=== PATIENT | female | born 1970 | race Caucasian/White ===

== ENCOUNTER → 2020-08-27 14:55 | Outpatient (BNVA) | payer OTHER, SELFPAY | PROVIDERS: PCP Internal Medicine; Visit Provider Internal Medicine | DX: I35.0 Nonrheumatic aortic (valve) stenosis (principal); Q23.1 Congenital insufficiency of aortic valve | CPT/HCPCS: 93005; 99212 ==

== ENCOUNTER → 2020-10-02 14:47 | Outpatient (REF) | payer OTHER, SELFPAY ==
--- NOTE | 2020-10-02 15:00 | CA_ITS ---
Transthoracic Echocardiogram Patient (Last, First, Middle): Pooja Seay, Gender: Female Date of : 1970 Age: 50 Procedure Date: 10/02/2020 Procedure Type: Transthoracic Echocardiogram Location: OP Height: 167.64 cm Weight: 53.98 kg BSA: 1.60 m2 Heart Rate: bpm BP: 161 / 77 mmHg Weight Recorder: ERIC Referring MD: Alexis Carrillo MD Strategic Manager: Erasmo Puentes MD Symptoms: Q23.1 - Congenital insufficiency of aortic valve Study Quality: Technically Difficult ECG Rhythm: Sinus Conclusions: - 1. Normal LV systolic and diastolic function 2. Moderate aortic stenosis, aortic leaflets not well visualized, reported before as bicuspid aortic valve 3. Ascending aorta not well visualized 4. No gross pericardial effusion Findings Left Ventricle Normal left ventricular size, thickness, and systolic function. The visually estimated ejection fraction is between 60-65%. Diastolic function is normal for age. Right Ventricle Normal right ventricular cavity size and systolic function. Atria Both atria are normal in size. Interatrial shunt cannot be excluded. Aortic Valve The aortic valve was not well visualized. There is moderate aortic valve stenosis. The peak aortic gradient is 28 mmHg.The mean gradient is 16 mmHg. There is no aortic valve regurgitation. Mitral Valve Likely normal mitral valve structure and function. There is trace mitral valve regurgitation. There is no mitral valve stenosis. Pulmonic Valve The pulmonic valve was not well visualized. Tricuspid Valve The tricuspid valve was not well visualized. Great Vessels The aorta was not well visualized. The pulmonary artery was not well visualized. Venous The inferior vena cava is normal in size and collapses greater than 50% with inspiration. Pericardium/Pleural There is no evidence of pericardial effusion. Prior Study Comparison Changes noted compared to prior study dated: 08/08/2019. Aortic stenosis is of moderate severity, although gradients are 16 mm of mercury. Clinical correlation suggested. Measurements M-Mode Liner Measurements Normals - Women/Men AOV Cusps: 2.00 1.5-2.6 cm/m2 2D Linear Measurements IVSd: 0.80 0.6-0.9/0.6-1.0 cm LVIDd: 4.18 3.9-5.3/4.2-5.9 cm LVIDd Index: 2.61 2.4-3.2/2.2-3.1 cm/m2 LVIDs: 2.87 2.0-3.6 cm LVPWd: 0.82 0.7-1.1 cm Ao Root: 3.10 2.1-3.5 cm LA Diam: 2.20 2.7-3.8/3.0-4.0 cm LAIDs Index: 1.38 1.5-2.3 cm/m2 LV Mass: 127.17 67-162/88-224 g LV Mass Index: 79.48 43-95/49-115 g/m2 LVOT Diam: 2.10 3.0+(-)1.3 cm 2D Systolic Function EF 4C: 61.50 >55% EF 2C: 72.60 >55% EF BiP: 68.20 >55% Mitral Valve MV Pk E: 0.92 MV PK A: 0.62 MV Decel Time: 243.00 E/A: 1.50 E'Lateral: 11.40 E'Medial: 10.20 E/E' Med: 9.00 E/E' Lat: 8.10 PHT: 71.00 MVA PHT: 3.10 Decel [place]: 3.79 Aortic Valve AoV Pk Vidal: 2.63 AoV Mn Vidal: 1.90 AoV VTI: 0.56 AoV Pk Grad: 28.00 Aov Mn Grad: 16.00 JUSTICE Cont.VTI: 1.20 LVOT LVOT Pk Vidal: 0.90 LVOT Mn Vidal: 0.57 LVOT VTI: 0.19 LVOT Pk Grad: 3.00 LVOT Mn Grad: 2.00 LVOT Diam: 2.10 LVOT Area: 3.46 Diastolic Function MV Pk E: 0.92 MV Pk A: 0.62 E/A: 1.50 E'Medial: 10.20 E/E' Med: 9.00 E' Laterial: 11.40 E/E' Lat: 8.10 Tricuspid Valve RA Press: 3.00 Great Vessels Aorta Ao Root-2D: 3.10 2.0-3.7 cm Ao Asc: 2.70 2.1-3.4 cm Ao Arch: 2.90 Pulmonary Valve PV Pk Vidal: 0.84 Peak PV Grad: 3.00 Updated in Other Vendor System with Status of Final Erasmo Puentes MD electronically signed on 10/03/2020 1:28:49 PM with status of Final
== END ==
LOC: HO.CARD 14:47
PROVIDERS: PCP Internal Medicine; Visit Provider Internal Medicine
DX: Q23.1 Congenital insufficiency of aortic valve (principal); I77.810 Thoracic aortic ectasia
CPT/HCPCS: 93306

== ENCOUNTER → 2020-11-01 15:47 | Outpatient (BNVA) | payer OTHER, SELFPAY | PROVIDERS: PCP Internal Medicine; Visit Provider Internal Medicine Pulmonary Disease | DX: J44.9 Chronic obstructive pulmonary disease, unspecified (principal); Z79.899 Other long term (current) drug therapy | CPT/HCPCS: 99202 ==

== ENCOUNTER 2020-12-04 15:06 | Outpatient (REF) | payer OTHER, SELFPAY ==
--- NOTE | 2020-12-04 16:21 | PFT_ITS ---
Forced vital capacity normal. FEV1, FEF 25-75, and MVV are markedly decreased. Postbronchodilator therapy, there is a significant improvement in FEV1, PCN59-83, and MVV. Total lung capacity and residual volume normal. Diffusion capacity moderately decreased. CONCLUSION: Severe obstructive airway disorder. Partial reversibility after bronchodilator therapy. These findings are consistent with asthma/COPD overlap syndrome. Clinical correlation is recommended. MD SAMANTHA Ulloa/MODL / [id number]
== END 2020-12-04 15:07 | disposition home or self-care (01) ==
LOC: HO.RESP 15:06
PROVIDERS: PCP Internal Medicine; Visit Provider Internal Medicine Pulmonary Disease
DX: J44.9 Chronic obstructive pulmonary disease, unspecified (principal)
CPT/HCPCS: 94060; 94727; 94729; 99212

== ENCOUNTER 2021-05-07 13:42 | Outpatient (REF) | payer OTHER, SELFPAY ==
[2021-05-07 14:04] LABS: MANUAL DIFF FLAG NO
[2021-05-07 14:22] LABS: Basophils Absolute Auto 0.1 X10*3/uL (0.0-0.2); Basophils Percent Auto 1.1 % (0-2); Eosinophils Absolute Auto 0.2 X10*3/uL (0.0-0.4); Eosinophils Percent Auto 3.1 % (0-4); Hematocrit 45.8 % (37-47); Hemoglobin 15.3 g/dl (12.0-16.0); Imm Gran Abs Auto 0.02 X10*3/uL (0.00-0.03); Imm Gran Pct Auto 0.3 % (0.0-0.4); Lymphocytes Absolute Auto 2.6 X10*3/uL (1.2-4.9); Lymphocytes Percent Auto 34.6 % (20-40); Mean Corpuscular HGB Conc 33.4 g/dl (31.0-35.0); Mean Corpuscular Hemoglobin 30.5 pg (27.0-33.0); Mean Corpuscular Volume 91.4 fL (80-98); Mean Platelet Volume 9.9 fL (9.4-12.3); Monocytes Absolute Auto 0.7 X10*3/uL (0.1-1.2); Monocytes Percent Auto 9.9 % (2-11); Neutrophils Absolute Auto 3.8 X10*3/uL (2.0-8.3); Platelet Count 242 X10*3/uL (160-400); Red Blood Count 5.01 X10*6/uL (4.20-5.50); Red Cell Distribution Width 12.2 % (11.0-16.0); White Blood Count 7.5 X10*3/uL (4.8-10.8)
[2021-05-07 14:49] LABS: Alanine Aminotransferase 16 U/L (0-31); Albumin Level 4.2 g/dL (3.5-5.0); Alkaline Phosphatase 91 U/L (39-117); Anion Gap 10 (12-20); Aspartate Amino Transferase 17 U/L (5-31); Bilirubin Total 0.5 mg/dL (0.0-1.0); Blood Urea Nitrogen 10 mg/dL (9-16); Calcium 9.6 mg/dL (8.4-10.2); Carbon Dioxide 28 mmol/L (22-29); Chloride 105 mmol/L (96-108); Cholesterol 216 mg/dL; Estimated Glomerular Filt Rate > 60; Glucose Fasting 79 mg/dL (60-99); HDL Cholesterol 63 mg/dL; LDL Cholesterol Calculated 127 mg/dl; Potassium 4.5 mmol/L (3.3-5.1); Sodium 138 mmol/L (135-145); Total Protein 6.7 g/dL (6.5-8.0); Triglycerides 130 mg/dL
[2021-05-14 14:21] LABS: Vitamin D 25-OH, D2 <4 ng/mL; Vitamin D 25-OH, D3 40 ng/mL; Vitamin D 25-OH, Total 40 ng/mL (30-100)
== END 2021-05-07 13:43 | disposition home or self-care (01) ==
LOC: HO.LAB 13:42
PROVIDERS: PCP Internal Medicine; Visit Provider Internal Medicine
DX: Z01.818 Encounter for other preprocedural examination (principal); E78.5 Hyperlipidemia, unspecified; D64.9 Anemia, unspecified; E55.9 Vitamin D deficiency, unspecified; J44.9 Chronic obstructive pulmonary disease, unspecified
CPT/HCPCS: 36415; 80053; 80061; 82306; 85025

== ENCOUNTER → 2021-05-27 13:45 | Outpatient (BNVA) | payer OTHER, SELFPAY | PROVIDERS: PCP Internal Medicine; Visit Provider Internal Medicine Pulmonary Disease | DX: J44.9 Chronic obstructive pulmonary disease, unspecified (principal) | CPT/HCPCS: 99212 ==

== ENCOUNTER 2021-06-11 11:27 | Day surgery (SDC) | payer OTHER, SELFPAY ==
[2021-06-05 12:06] VITALS: BMI 17.7
--- NOTE | 2021-06-10 13:39 | HO.ANESPROP2 ---
Documented by User: Caitlin Cason NP 06/10/21 13:43 HPI - Anesthesia Eval Consult details Narrative: 50yo F for Colonoscopy PMFSH Active Problems Active Problems: All Active Problems (Updated 06/05/21 @ 12:04 by Bhavana Keys, RN) Asthma-COPD overlap syndrome (Acute) Colon cancer screening (Acute) History of cervical cancer (Acute) COPD (chronic obstructive pulmonary disease) (Acute) Non-rheumatic aortic stenosis (Acute) Bicuspid aortic valve (Acute) Pre-op evaluation (Acute) Allergies (Acute) Moderate asthma (Acute) Past Medical History Medical History (Updated 06/05/21 @ 12:04 by Bhavana Keys RN) Allergies Bicuspid aortic valve COPD (chronic obstructive pulmonary disease) Edentulous History of cervical cancer Moderate asthma Non-rheumatic aortic stenosis Pre-op evaluation Family History Family History Father Pancreatic cancer Mother Leaky heart valve Maternal Aunt Breast cancer Surgical History Surgical History History of bunionectomy History of loop electrical excision procedure (LEEP) (~06/15/20) History of pneumothorax History of tooth extraction Social History Social History Housing: Apartment Alcohol intake: never Patient Tobacco Use Status: Current someday Tobacco user Tobacco use type: Cigarette Cigarettes Per Day: 3 e-Cigarette/Vaping Use: Never Used Second Hand Smoke Exposure: No Use of substances other than those prescribed or required for medical reasons: Yes Substance Use Frequency: Daily Are you DNR?: No Advance Directives: No Advance Directives Information Provided: Yes (info mailed) Advance Directives on File: No service: No Current occupational status: disabled Meds Allergies Allergy/AdvReac Type Severity Reaction Status Date / Time ibuprofen [IBUPROFEN] Allergy Intermediate past gi Verified 05/27/21 13:50 bleed silver Allergy Intermediate Rash Verified 05/27/21 13:50 [From Tegaderm AG Mesh] aspirin [Aspirin] AdvReac Intermediate PAST GI Verified 06/05/21 12:05 BLEED Home Medications Medication Instructions Recorded Confirmed Last Taken Type multivitamin 1 tab PO DAILY 08/27/20 06/05/21 Unknown History umeclidinium 62.5 mcg-vilanterol 1 puff INHALATION DAILY 06/11/21 06/11/21 06/11/21 History 25 mcg/actuation powdr for inhalation (Anoro Ellipta) Exam Exam Date and Time: June 10, 2021 1339 Height,Weight and Vital Signs: Height 5 ft 6 in Weight 49.895 kg Pertinent Lab Results Pertinent Lab Results: Laboratory Tests 05/07/21 05/07/21 14:00 14:00 WBC 7.5 Hgb 15.3 Hct 45.8 Plt Count 242 Sodium 138 Potassium 4.5 Chloride 105 Carbon Dioxide 28 BUN 10 Creatinine 0.82 Narrative Narrative: EKG 08/2020 sinus rhythm at 67/Min; cannot exclude old septal infarct; otherwise unremarkable.? Could be from body habitus.? Similar to prior. ECHO 08/2020 Conclusions: -? 1. Normal LV systolic and diastolic function? 2. Moderate aortic stenosis, aortic leaflets not well visualized, reported before as bicuspid aortic valve ? 3. Ascending aorta not well visualized ? 4. No gross pericardial effusion ? ? ? Assessment and Plan Assessment Anesthesia Assessment: Chart Reviewed Documented by User: Anastasiya Peña MD 06/11/21 12:21 [facility] Past Medical History Medical History (Updated 06/05/21 @ 12:04 by Bhavana Keys, JACKIE) Allergies Bicuspid aortic valve COPD (chronic obstructive pulmonary disease) Edentulous History of cervical cancer Moderate asthma Non-rheumatic aortic stenosis Pre-op evaluation Family History Family History Father Pancreatic cancer Mother Leaky heart valve Maternal Aunt Breast cancer Surgical History Surgical History History of bunionectomy History of loop electrical excision procedure (LEEP) (~06/15/20) History of pneumothorax History of tooth extraction Social History Social History Housing: Apartment Alcohol intake: never Patient Tobacco Use Status: Current someday Tobacco user Tobacco use type: Cigarette Cigarettes Per Day: 3 e-Cigarette/Vaping Use: Never Used Second Hand Smoke Exposure: No Use of substances other than those prescribed or required for medical reasons: Yes Substance Use Frequency: Daily Are you DNR?: No Advance Directives: No Advance Directives Information Provided: Yes (info mailed) Advance Directives on File: No service: No Current occupational status: disabled Meds Allergies Allergy/AdvReac Type Severity Reaction Status Date / Time ibuprofen [IBUPROFEN] Allergy Intermediate past gi Verified 05/27/21 13:50 bleed silver Allergy Intermediate Rash Verified 05/27/21 13:50 [From Tegaderm AG Mesh] aspirin [Aspirin] AdvReac Intermediate PAST GI Verified 06/05/21 12:05 BLEED Home Medications Medication Instructions Recorded Confirmed Last Taken Type multivitamin 1 tab PO DAILY 08/27/20 06/05/21 Unknown History umeclidinium 62.5 mcg-vilanterol 1 puff INHALATION DAILY 06/11/21 06/11/21 06/11/21 History 25 mcg/actuation powdr for inhalation (Anoro Ellipta) Exam Airway Mallampati Class: II TM Dist: >3cm Neck ROM: Full
[2021-06-11 11:58] VITALS: BP 129/92; PULSE 58; RESP 16; TEMP 36.1; O2SAT 97
--- NOTE | 2021-06-11 12:27 | P.CONAN_ITS ---
[facility] Active Problems Active Problems: All Active Problems (Updated 06/05/21 @ 12:04 by Bhavana hansen, RN) Asthma-COPD overlap syndrome (Acute) Colon cancer screening (Acute) History of cervical cancer (Acute) COPD (chronic obstructive pulmonary disease) (Acute) Non-rheumatic aortic stenosis (Acute) Bicuspid aortic valve (Acute) Pre-op evaluation (Acute) Allergies (Acute) Moderate asthma (Acute) Past Medical History Medical History (Updated 06/05/21 @ 12:04 by Bhavana Keys RN) Allergies Bicuspid aortic valve COPD (chronic obstructive pulmonary disease) Edentulous History of cervical cancer Moderate asthma Non-rheumatic aortic stenosis Pre-op evaluation Family History Family History Father Pancreatic cancer Mother Leaky heart valve Maternal Aunt Breast cancer Surgical History Surgical History History of bunionectomy History of loop electrical excision procedure (LEEP) (~06/15/20) History of pneumothorax History of tooth extraction Social History Social History Housing: Apartment Alcohol intake: never Patient Tobacco Use Status: Current someday Tobacco user Tobacco use type: Cigarette Cigarettes Per Day: 3 e-Cigarette/Vaping Use: Never Used Second Hand Smoke Exposure: No Use of substances other than those prescribed or required for medical reasons: Yes Substance Use Frequency: Daily Are you DNR?: No Advance Directives: No Advance Directives Information Provided: Yes (info mailed) Advance Directives on File: No service: No Current occupational status: disabled Meds Allergies Allergy/AdvReac Type Severity Reaction Status Date / Time ibuprofen [IBUPROFEN] Allergy Intermediate past gi Verified 05/27/21 13:50 bleed silver Allergy Intermediate Rash Verified 05/27/21 13:50 [From Tegaderm AG Mesh] aspirin [Aspirin] AdvReac Intermediate PAST GI Verified 06/05/21 12:05 BLEED Active Medications: Current Medications Albuterol Sulfate (Albuterol Sulfate (0.083%) 2.5 Mg/3 Ml Vial.Neb) 2.5 mg INHALE ONCE PRN PRN Reason: Shortness of Breath/Wheezing Lactated Ringer's (Lr) 1,000 mls @ 100 mls/hr IVCONT .Q10H [facility] Home Medications Medication Instructions Recorded Confirmed Last Taken Type multivitamin 1 tab PO DAILY 08/27/20 06/05/21 Unknown History umeclidinium 62.5 mcg-vilanterol 1 puff INHALATION DAILY 06/11/21 06/11/21 06/11/21 History 25 mcg/actuation powdr for inhalation (Anoro Ellipta) Exam Exam Date and Time: June 11, 2021 1227 Height,Weight and Vital Signs: Height 5 ft 6 in Weight 49.895 kg Last Vital Signs Temp 97.0 F 06/11/21 11:58 Pulse 58 06/11/21 11:58 Resp 16 06/11/21 11:58 BP 129/92 H 06/11/21 11:58 Pulse Ox 97 06/11/21 11:58 Airway Mallampati Class: II TM Dist: >3cm Neck ROM: Full
[2021-06-11] MEDS: Lactated Ringers 1,000 ML 100 ML IVCONT (12:29)
--- NOTE | 2021-06-11 12:33 | MHC.SHP ---
Pre-Procedural Eval Section A Date of Service: 06/11/21 The patient is an INPATIENT: No The History & Physical has been completed within 30 days and I have reviewed it.: No Section B Chief Complaint: screening Details of Present Illness: Colon cancer screening Relevant Family History (Specify if Yes): Yes Relevant Social History: Tobacco Use Present Medications: see Short Stay Collaborative assessment Medical History: Significant History (Allergies Bicuspid aortic valve COPD (chronic obstructive pulmonary disease) History of cervical cancer Moderate asthma Non-rheumatic aortic stenosis Pre-op evaluation) History of Previous Operations: Relevant previous surgery/procedure and date(s) (History of bunionectomy History of loop electrical excision procedure (LEEP) (~06/15/20) History of pneumothorax History of tooth extraction) Allergies: Allergies Allergy/AdvReac Type Severity Reaction Status Date / Time ibuprofen [IBUPROFEN] Allergy Intermediate past gi Verified 05/27/21 13:50 bleed silver Allergy Intermediate Rash Verified 05/27/21 13:50 [From Tegaderm AG Mesh] aspirin [Aspirin] AdvReac Intermediate PAST GI Verified 06/05/21 12:05 BLEED Review of Systems Sugical H&P ROS: Negative: Constitution, Cardiovascular, Respiratory and Gastrointestinal Exam Surgical H&P Exam: Normal: Heart, Normal: Lungs, Normal: Extremities and Normal: Abdomen Plan Diagnosis/Plan: Unchanged I have reviewed the history and physical and performed a pertinent physical examination on my patient. No changes have occurred unless specified.
--- NOTE | 2021-06-11 13:22 | P.OP_ITS ---
Operative Note Operative Note Date of Service: 06/11/21 Narrative: Pre-op diagnosis:?Colon cancer screening Post-op diagnosis:?other (Colon polyp, diverticulosis, hemorrhoid) Procedure:? COLONOSCOPY TILL CECUM WITH SNARE POLYPECTOMY Consent: Indications for the procedure and potential complications of bleeding, perforation, reaction to medications and missed diagnosis were discussed with the patient and informed consent was obtained. Instrument: Olympus PCF H 190 L variable stiffness pediatric colonoscope Monitoring: Vital signs and clinical assessment, intermittent blood pressure monitoring, continuous EKG monitoring, Pulse oximetry and Carbon Dioxide monitoring were done throughout the procedure. Colon withdrawl time was 27 minutes. Procedure: The patient was placed in the left lateral decubitis position and pre-procedure medications were administered. After a digital rectal examination of the ano-rectum, the video colonoscope was inserted into the rectum and advanced through the colon to the cecum. The colonoscope was slowly withdrawn in a retrograde panoramic fashion and the colon mucosa was carefully examined including a retroflexed view of the rectum. Findings and interventions are described below. Procedure Difficulty: Without difficulty Findings: Terminal Ileum: Not evaluated Cecum:? Normal Ascending Colon:? Normal Transverse Colon:? Normal Descending Colon:? Normal Sigmoid Colon:? A 10 mm sessile polyp removed with a hot snare. Moderate diverticulosis Rectum:? Normal Ano-rectum:? Moderate internal hemorrhoids Colon preparation:? There was a thin film of yellow fluid covering the mucosa. Good? after copious irrigation Impression and Post Procedure Diagnosis: Colonoscopy Findings: One medium sized polyps removed Moderate diverticulosis seen in the sigmoid colon Moderate hemorrhoids on retroflexed exam. Plan: Await pathology results Patient has an appointment on 06/25/21 in the GI Clinic with? Cori Chen NP. Repeat Colonoscopy interval based on path results - in 3 years if polyps are adenomatous and 10 years if polyps are hyperplastic. Above findings were reviewed with the patient and colon polyps and diverticulosis handouts were given in the discharge area Surgeon:?Napoleon Alanis MD Anesthesia:?MAC (Carolyn Almeida CRNA) Was an Retail Reset Merchandiser used for this Procedure?:?No Retail Reset Merchandiser:?Jane Harris Estimated blood loss (mL):?0 Pathology:?other (A. sigmoid polyp) Condition:?stable Disposition:?PACU
[2021-06-11 14:17] VITALS: BP 153/98; PULSE 67; RESP 16; TEMP 36.1; O2SAT 100
[2021-06-11 14:32] VITALS: BP 142/102; PULSE 72; RESP 18; TEMP 36.1; O2SAT 100
== END 2021-06-11 15:59 | disposition home or self-care (01) ==
PROVIDERS: PCP Internal Medicine; Visit Provider Internal Medicine Gastroenterology
PROC: 0DJD8ZZ Inspection of Lower Intestinal Tract, Via Natural or Artificial Opening Endoscopic (ICD-10-PCS; CPT 45378; principal; 2021-06-11 12:40)
DX: Z12.11 Encounter for screening for malignant neoplasm of colon (principal); D12.5 Benign neoplasm of sigmoid colon; K57.30 Diverticulosis of large intestine without perforation or abscess without bleeding; K64.8 Other hemorrhoids; J44.9 Chronic obstructive pulmonary disease, unspecified; Q23.1 Congenital insufficiency of aortic valve; Z79.51 Long term (current) use of inhaled steroids; Z88.8 Allergy status to other drugs, medicaments and biological substances; F17.210 Nicotine dependence, cigarettes, uncomplicated
CPT/HCPCS: 45385; 88305

== ENCOUNTER → 2022-02-18 13:33 | Outpatient (BNVA) | payer OTHER, SELFPAY | PROVIDERS: PCP Internal Medicine; Visit Provider Internal Medicine Pulmonary Disease | DX: J44.9 Chronic obstructive pulmonary disease, unspecified (principal); Z91.09 Other allergy status, other than to drugs and biological substances; F12.90 Cannabis use, unspecified, uncomplicated | CPT/HCPCS: 99212 ==

== ENCOUNTER → 2022-03-26 14:58 | Outpatient (BNVA) | payer OTHER, SELFPAY | PROVIDERS: PCP Internal Medicine; Referring Provider Internal Medicine; Visit Provider Internal Medicine | DX: I35.0 Nonrheumatic aortic (valve) stenosis (principal); Q23.1 Congenital insufficiency of aortic valve | CPT/HCPCS: 93005; 99212 ==

== ENCOUNTER → 2022-04-11 15:04 | Outpatient (REF) | payer OTHER, SELFPAY ==
--- NOTE | 2022-04-11 15:25 | CA_ITS ---
Transthoracic Echocardiogram Amended Patient (Last, First, Middle): Pooja Seay E Gender: Female Date of : 1970 Age: 51 Procedure Date: 04/11/2022 Procedure Type: Transthoracic Echocardiogram Location: OP Height: 167.64 cm Weight: 57.61 kg BSA: 1.65 m2 Heart Rate: 76 bpm BP: 124 / 68 mmHg Online Advertising Manager: SB Referring MD: Alexis Carrillo MD Manager Embalmer Funeral Director: Erasmo Puentes MD Symptoms: Q23.1 - Congenital insufficiency of aortic valve Study Quality: Adequate ECG Rhythm: Sinus Conclusions: - 1. Normal LV systolic function with grade 1 diastolic dysfunction 2. Possible bicuspid aortic valve with moderate aortic stenosis 3. Normal RV systolic pressure 4. Mildly dilated ascending aorta at 4 cm 5. No pericardial effusion Findings Left Ventricle Normal left ventricular size, thickness, and systolic function. The visually estimated ejection fraction is between 60-65%. Spectral Doppler is indicative of an impaired relaxation filling pattern. E/E prime ratio is <8, consistent with normal filling pressures. Evidence suggests grade I (mild) diastolic dysfunction. Peak GLS is -18.7%, within normal limits. Right Ventricle Normal right ventricular cavity size and systolic function. Atria Both atria are normal in size. There is lipomatous hypertrophy of the interatrial septum. There is no evidence of interatrial shunt. Aortic Valve There is a bicuspid aortic valve. There is mild calcification of the aortic valve. There is mild thickening of the aortic valve. There is moderate aortic valve stenosis. The mean gradient is 16 mmHg. The aortic valve area is 1.27 cm2. There is no aortic valve regurgitation. Mitral Valve Likely normal mitral valve structure and function. There is trace mitral valve regurgitation. There is no mitral valve stenosis. Pulmonic Valve The pulmonic valve was not well visualized. Tricuspid Valve Likely normal tricuspid valve structure and function. There is trace tricuspid valve regurgitation. The right ventricular systolic pressure is normal. Normal right atrial pressure. There is no evidence of pulmonary hypertension. Great Vessels The pulmonary artery was not well visualized. There is mild dilatation of the ascending aorta measuring 4.00 cm. Venous The inferior vena cava is normal in size and collapses greater than 50% with inspiration. Pericardium/Pleural There is no evidence of pericardial effusion. Prior Study Comparison Changes noted compared to prior study dated: 10/02/2020. ascending aorta is mildly dilated at 4 cm Measurements 2D Linear Measurements IVSd: 0.87 0.6-0.9/0.6-1.0 cm LVIDd: 4.58 3.9-5.3/4.2-5.9 cm LVIDd Index: 2.78 2.4-3.2/2.2-3.1 cm/m2 LVIDs: 2.82 2.0-3.6 cm LVPWd: 0.80 0.7-1.1 cm LA Diam: 2.80 2.7-3.8/3.0-4.0 cm LAIDs Index: 1.70 1.5-2.3 cm/m2 LV Mass: 153.14 67-162/88-224 g LV Mass Index: 92.81 43-95/49-115 g/m2 LVOT Diam: 2.00 3.0+(-)1.3 cm 2D Volumes LA Vol: 16.40 2D Systolic Function EF 4C: 67.90 >55% EF 2C: 67.50 >55% EF BiP: 67.40 >55% Mitral Valve MV Pk E: 0.80 MV PK A: 0.81 MV Decel Time: 203.00 E/A: 1.00 E'Lateral: 9.68 E'Medial: 5.98 E/E' Med: 13.30 E/E' Lat: 8.20 PHT: 59.00 MVA PHT: 3.73 Decel [place]: 3.92 Aortic Valve AoV Pk Vidal: 2.65 AoV Mn Vidal: 1.89 AoV VTI: 0.55 AoV Pk Grad: 28.00 Aov Mn Grad: 16.00 JUSTICE Cont.VTI: 1.27 LVOT LVOT Pk Vidal: 1.08 LVOT Mn Vidal: 0.77 LVOT VTI: 0.22 LVOT Pk Grad: 5.00 LVOT Mn Grad: 3.00 LVOT Diam: 2.00 LVOT Area: 3.14 Diastolic Function MV Pk E: 0.80 MV Pk A: 0.81 E/A: 1.00 E'Medial: 5.98 E/E' Med: 13.30 E' Laterial: 9.68 E/E' Lat: 8.20 Right Ventricle TAPSE (mm): 20.70 TVS' Vidal: 10.80 Tricuspid Valve TR Pk Vidal: 1.95 TR Pk Grad: 15.00 RA Press: 3.00 RVSP: 18.00 Great Vessels Aorta Sinus of Valsalva: 3.30 2.0-3.5 cm Ao Asc: 4.00 2.1-3.4 cm Ao Arch: 2.90 Ao Desc: 2.20 Pulmonary Valve PV Pk Vidal: 0.87 Peak PV Grad: 3.00 Updated in Other Vendor System with Status of Final Erasmo Puentes MD electronically signed on 04/12/2022 11:06:06 AM with status of Final
== END ==
LOC: HO.CARD 15:04
PROVIDERS: PCP Internal Medicine; Visit Provider Nurse Practitioner Family
DX: Q23.1 Congenital insufficiency of aortic valve (principal)
CPT/HCPCS: 93306; 93356

== ENCOUNTER 2022-05-14 15:38 | Outpatient (REF) | payer OTHER, SELFPAY ==
[2022-05-15 02:52] LABS: CT PCR NOT DETECTED (Not Detect.); NG PCR NOT DETECTED (Not Detect.)
[2022-05-15 13:27] LABS: BV Int Neg Control Negative (Negative); BV Int Pos Control Positive (Positive)
[2022-05-20 20:42] LABS: HPV mRNA E6/E7 rflx Not Detected (Not Detected)
== END 2022-05-14 15:39 | disposition home or self-care (01) ==
LOC: HO.LNP 15:38
PROVIDERS: Visit Provider Advanced Practice Midwife
DX: Z01.419 Encounter for gynecological examination (general) (routine) without abnormal findings (principal); Z11.51 Encounter for screening for human papillomavirus (HPV)
CPT/HCPCS: 87480; 87491; 87510; 87591; 87624; 87660; 88142

== ENCOUNTER → 2022-07-16 13:18 | Outpatient (BNVA) | payer OTHER, SELFPAY | PROVIDERS: PCP Internal Medicine; Referring Provider Internal Medicine; Visit Provider Nurse Practitioner Family | DX: I77.810 Thoracic aortic ectasia (principal); Q23.1 Congenital insufficiency of aortic valve | CPT/HCPCS: 99212 ==

== ENCOUNTER 2022-07-24 08:13 | Outpatient (REF) | payer OTHER, SELFPAY ==
[2022-07-24 12:57] LABS: Alanine Aminotransferase 15 U/L (0-31); Albumin Level 4.4 g/dL (3.5-5.0); Alkaline Phosphatase 87 U/L (39-117); Anion Gap 12 (12-20); Aspartate Amino Transferase 18 U/L (5-31); Bilirubin Total 0.4 mg/dL (0.0-1.0); Blood Urea Nitrogen 13 mg/dL (9-16); Calcium 9.5 mg/dL (8.4-10.2); Carbon Dioxide 26 mmol/L (22-29); Chloride 104 mmol/L (96-108); Cholesterol 234 mg/dL; Estimated Glomerular Filt Rate > 60; Glucose Fasting 97 mg/dL (60-99); HDL Cholesterol 59 mg/dL; LDL Cholesterol Calculated 151 mg/dl; Potassium 4.4 mmol/L (3.3-5.1); Sodium 138 mmol/L (135-145); Triglycerides 123 mg/dL
== END 2022-07-24 08:14 | disposition home or self-care (01) ==
LOC: HO.10HDL 08:13
PROVIDERS: Visit Provider Internal Medicine
DX: Z00.00 Encounter for general adult medical examination without abnormal findings (principal)
CPT/HCPCS: 36415; 80053; 80061

== ENCOUNTER 2025-01-12 15:02 | Outpatient (AMB) | payer OTHER, SELFPAY ==
[2025-01-12 15:19] VITALS: BP 126/80; BMI 20.2
--- NOTE | 2025-01-12 15:19 | A.OFFPC_ITS ---
Vital Signs 01/12/25 15:19 Height 5 ft 6 in Weight 125 lb BMI 20.2 BP 126/80 Blood Pressure Location Lt brachial Position Sitting Intake Visit Reasons: annual exam Intake Note: Patient here for an annual physical exam Director Business Management Required: No Accompanied by: Brother Allergies ibuprofen [IBUPROFEN] Allergy (Intermediate, Verified 01/12/25 15:26) past gi bleed silver [From Tegaderm AG Mesh] Allergy (Intermediate, Verified 01/12/25 15:26) Rash aspirin [Aspirin] Adverse Reaction (Intermediate, Verified 01/12/25 15:26) PAST GI BLEED Medication List - Last Reconciled 01/12/25 by Suzan Spivey MD aspirin 81 mg PO DAILY umeclidinium-vilanterol 62.5-25 mcg/actuation (Anoro Ellipta) 1 ea inhalation DAILY Tobacco use date assessed: 01/12/25 Dental Screening Dental Screen Date: 01/12/25 Did you have a dental visit in the last 12 months?: No Did you have a dental problem in the last 6 months where you did not have access to dental care?: No Was dental information given to patient?: Patient declined HPI HPI Comments History of Present Illness Details The patient is a 54-year-old female presenting for a routine physical examination and allergy management. 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 She has a history of a tubular adenoma found in 2020, which requires follow-up colonoscopy surveillance that has been delayed due to relocation and personal circumstances. Her previous medical history includes a pneumothorax in 2001 and bilateral bunionectomies in 1987. She has experienced ibuprofen and aspirin-induced gastrointestinal bleeding and a silver-induced rash. She does not consume alcohol but smokes occasionally. Family medical history reveals her father's pancreatic cancer and her mother's heart valve issues, with a maternal aunt also having a history of breast cancer. The patient is concerned about allergic rhinitis exacerbated by high pollen exposure, seeking effective management solutions for this condition. - Routine physical examination - Colonoscopy follow-up planned for tubu lar adenoma surveillance - Allergy management plan for allergic r hinitis - BMI and general wellness assessment [facility] Medical History (Updated 01/12/25 @ 15:36 by Suzan Spivey MD) Ascending aorta dilatation Edentulous History of cervical cancer COPD (chronic obstructive pulmonary disease) Non-rheumatic aortic stenosis Bicuspid aortic valve Pre-op evaluation Allergies Moderate asthma Surgical History History of loop electrical excision procedure (LEEP) (~06/15/20) History of tooth extraction History of pneumothorax History of bunionectomy Family History Father Pancreatic cancer Mother Leaky heart valve Maternal Aunt Breast cancer Social History Housing: Apartment Alcohol intake: never Patient Tobacco Use Status: Current someday Tobacco user Tobacco use type: Cigarette Cigarettes Per Day: 3 e-Cigarette/Vaping Use: Never Used Second Hand Smoke Exposure: No service: No Current occupational status: disabled Cognitive needs: No Hearing needs: No Vision needs: No Female Reproductive History Menstrual Age of Menarche: 11 Questionnaire PHQ-9 Over the last 2 weeks, how often have you been bothered by any of the following problems? 1. Little interest or pleasure in doing things: not at all 2. Feeling down, depressed, or hopeless: not at all 3. Trouble falling or staying asleep, or sleeping too much: not at all 4. Feeling tired or having little energy: not at all 5. Poor appetite or overeating: not at all 6. Feeling bad about yourself - or that you are a failure or have let yourself or your family down: not at all 7. Trouble concentrating on things, such as reading the newspaper or watching television: not at all 8. Moving or speaking so slowly that other people could have noticed. Or the opposite - being so fidgety or restless that you have been moving around a lot more than usual: not at all 9. Thoughts that you would be better off or of hurting yourself in some way: not at all Total score: 0 Depression Screening Interpretation: Negative Depression Screening Done: Yes Source: Developed by Drs. Amauri Dozier, Debra Heredia, Felipe Diop and colleagues, with an educational monae from [employer]. Thrive Questionnaire Date Thrive assessed: 01/12/25 I am a: Patient What is your living situation today?: I have a steady place to live Within the past 12 months, did the food you bought not last and you didn't have the money to get more?: Never true Within the past 12 months, did you worry whether your food would run out before you got money to buy more?: Never true Do you have trouble paying for medicines?: No Do you have trouble getting transportation to medical appointments?: No Do you have trouble paying your heating and electricity bill?: No Do you have trouble taking care of your child, family member or friend?: No Do you have trouble with day-to-day activities such as bathing, preparing meals, shopping, managing finances, etc.?: No Are you currently unemployed and looking for a job?: No Are you interested in more education?: No Please select the resources that you would like help with: None Currently or been in a relationship where the following occur: No concerns reported THRIVE Score: 0 AUDIT C Alcohol Use Questionnaire (AUDIT-C) 1. How often do you have a drink containing alcohol?: Never Total Score: 0 Score Reviewed/Action Taken: No DOMENIC-7 AMB Questionnaire DOMENIC-7 Date DOMENIC - 7 assessed: 01/12/25 Feeling nervous, anxious, or on edge: 2 = More than half the days Not being able to stop or control worryin = Not at all Worrying too much about different things: 0 = Not at all Trouble relaxin = More than half the days Being so restless that it is hard to sit still: 3 = Nearly every day Becoming easily annoyed or irritable: 0 = Not at all Feeling afraid as if something awful might happen: 2 = More than half the days Total DOMENIC-7 score (0-4 normal; 5-9 mild; 10-14 moderate; 15-21 severe): 9 Source: Developed by Drs. Amauri Dozier, Debra Heredia, Felipe Diop and colleagues, with an educational monae from [employer]. DOMENIC-7 Assessment Billing DOMENIC-7 Assessment Tool: DOMENIC-7 Assessment 61557 Review of Systems Const All systems reviewed & are unremarkable except as noted in HPI and below Card Denies chest pain at rest, Denies chest pain with activity, Denies edema, Denies irregular heart rhythm, Denies claudication, Denies dyspnea, Denies dyspnea on exertion, Denies orthopnea, Denies paroxysmal nocturnal dyspnea and Denies slow heart rate Resp Denies cough, Denies dyspnea and Denies dyspnea on exertion GI Denies abdominal pain, Denies change in bowel habits, Denies excessive flatus, Denies nausea and Denies vomiting Denies urinary incontinence, Denies urinary hesitancy and Denies urinary urgency Musc Denies abnormal gait, Denies atrophy, Denies deformity and Denies limited range of motion Skin/Breast Denies bleeding lesions, Denies changing lesions and Denies rash Neuro Denies abnormal gait, Denies behavioral changes and Denies lack of coordination Psych Denies behavioral changes Physical exam (Primary Care) Vital Signs: Last Vital Signs BP 126/80 01/12/25 15:19 BMI result Body Mass Index 20.2 Tobacco/Smoking Status: Tobacco use Status Tobacco use date assessed 01/12/25 01/12/25 15:26 Patient Tobacco Use Status Current someday Tobacco 01/12/25 15:26 Tobacco use type Cigarette 01/12/25 15:26 e-Cigarette/Vaping Use Never Used 01/12/25 15:26 Depression Screening Interpretation: Negative Thrive Assessment: Date of Thrive Assessment Date Thrive assessed 01/12/25 01/12/25 15:26 Currently or been in a relationship where the following occur: No concerns reported [facility] Head: Yes normal to inspection, Yes normocephalic and Yes atraumatic Ears: external ears normal Eyes General: appearance normal, both eyes and all related structures Eyelids: Yes eyelids normal Conjunctivae: conjunctivae normal Neck Neck: Yes normal visual inspection and Yes supple Resp Effort & Inspection: normal respiratory effort Auscultation: clear to auscultation bilaterally Cardio Jugular venous distension: no JVD Rate: regular rate Rhythm: regular rhythm Heart sounds: S1 normal heart sound present and S2 normal heart sound present GI Inspection: Yes normal to inspection Palpation (GI): Soft to palpation and nontender Auscultation: normal bowel sounds Skin General skin exam: no rashes or lesions noted Neuro General: no focal motor deficits Extrem General: Yes full ROM Psych Appearance: grossly normal Coding Level of Care Code Est Pt Level 3 (81626) Est Pt Prev Care 40-64y(47849) Diagnoses Physical exam Z00.00 Seasonal allergic rhinitis due to pollen J30.1 Asthma-COPD overlap syndrome J44.9 Additional Codes DOMENIC-7 Assessment Billing - DOMENIC-7 Assessment Tool: DOMENIC-7 Assessment 44747 ([id number]) Time Spent (min) 31 Assessment & Plan Assessment & Plan (1) Physical exam: Code(s): Z00.00 - Encounter for general adult medical examination without abnormal findings Category: Medical (2) Seasonal allergic rhinitis due to pollen: Code(s): J30.1 - Allergic rhinitis due to pollen Category: Medical (3) Asthma-COPD overlap syndrome: Code(s): J44.9 - Chronic obstructive pulmonary disease, unspecified Category: Medical Plan We will schedule a follow-up colonoscopy due to her history of a tubular adenoma. Allergy medications will be prescribed to alleviate symptoms exacerbated by local high pollen levels. We discussed the importance of smoking cessation and strategies to facilitate this. Given her history of NSAID-induced gastrointestinal bleeding, we advised avoiding ibuprofen and discussed alternative options. Health maintenance, including vaccinations and screenings, will continue to be a priority, ensuring compliance with routine preventive care guidelines. Interventions to improve her housing situation and reduce stressors were also discussed. Patient was informed and verbally consented to the use of an ambient scribe for clinic note documentation during this visit. During this consultation, we discussed the importance of follow-up colonoscopy for surveillance of her previous tubular adenoma, adhering to established guidelines. I reiterated the role of allergy management with appropriate medications to address her exacerbated symptoms from environmental pollen. We conversed on minimizing NSAID usage due to the risk of gastrointestinal bleeding, recommending alternative pain management strategies. Smoking cessation was highlighted, along with its health benefits. Provided guidance on prioritizing housing stability to enhance her overall health and reduce smoking triggers. She was aware of the need for regular health maintenance, including vaccinations and necessary screenings, and agreed to the proposed plan. Medications: New cetirizine (All Day Allergy (cetirizine)) 10 mg PO DAILY 90 days PRN 90 tabs 1RF allergy symptoms J30.1 - Allergic rhinitis due to pollen Patient Instructions: - Schedule a follow-up colonoscopy for surveillance within the next year. - Take prescribed allergy medications regularly to control symptoms. - Avoid NSAIDs like ibuprofen and seek alternatives for pain if necessary. - Attempt smoking cessation using provided resources and support. - Follow up with routine vaccinations and screenings as advised. - Address current housing situation to reduce stress and smoking triggers.
== END 2025-01-12 15:33 | disposition home or self-care (01) ==
PROVIDERS: PCP Internal Medicine; Visit Provider Internal Medicine
DX: Z00.00 Encounter for general adult medical examination without abnormal findings (principal); J30.1 Allergic rhinitis due to pollen; J44.9 Chronic obstructive pulmonary disease, unspecified

== ENCOUNTER → 2025-01-12 15:02 | Outpatient (BNVA) | payer OTHER, SELFPAY | PROVIDERS: PCP Internal Medicine; Visit Provider Internal Medicine | DX: Z00.00 Encounter for general adult medical examination without abnormal findings (principal); J44.89 Other specified chronic obstructive pulmonary disease; J30.1 Allergic rhinitis due to pollen | CPT/HCPCS: 96127; 99212; 99396 ==

== ENCOUNTER 2025-05-03 14:29 | Outpatient (AMB) | payer OTHER, SELFPAY ==
--- NOTE | 2025-05-03 14:39 | MHC.OFFVIS ---
Vital Signs 05/03/25 14:56 Height 5 ft 6 in Weight 124 lb 12.506 oz BMI 20.1 BP 122/82 Blood Pressure Location Lt brachial Position Sitting Pulse 65 Intake Visit Reasons: abdominal pain Intake Note: New patient in office today for abdominal pain. CC: Patient c/o abdominal pain for about a pain, fevers, chills, vomiting, pain worse after eating something solid. She has been on liquid diet. She reports some bloods spots here and there . Day Habilitation Supervisor Required: No Accompanied by: Friend Allergies ibuprofen (IBUPROFEN) Allergy (Intermediate, Verified 05/03/25 15:02) past gi bleed silver (From Tegaderm AG Mesh) Allergy (Intermediate, Verified 05/03/25 15:02) Rash aspirin (Aspirin) Adverse Reaction (Intermediate, Verified 05/03/25 15:02) PAST GI BLEED HPI HPI abdominal pain: Details: 50-year-old female here for preprocedural meeting to discuss a screening colonoscopy. APPARENTLY, they tried to order open access for her but she did not meet the criteria. She is [place] Suzan Spive[place] [facility] [place] PMX Asthma-COPD overlap syndrome (Acute) Bicuspid aortic valve (Acute) History of cervical cancer (Acute) Non-rheumatic aortic stenosis (Acute) * SURGICAL HISTORY History of bunionectomy 1988 bilateral History of loop electrical excision procedure (LEEP) @ [facility]; Dr. Barr ~06/15/20 History of pneumothorax 2001 History of tooth extraction * ALLERGIES ibuprofen - past gi bleed silver - Rash aspirin - PAST GI BLEED * [address] [facility]: none since 2021 2020 colonoscopy-[facility] Findings: Terminal Ileum: Not evaluated Cecum:? Normal Ascending Colon:? Normal Transverse Colon:? Normal Descending Colon:? Normal Sigmoid Colon:? A 10 mm sessile polyp removed with a hot snare. Moderate diverticulosis Rectum:? Normal Ano-rectum:? Moderate internal hemorrhoids Colon preparation:? There was a thin film of yellow fluid covering the mucosa. Good? after copious irrigation Impression and Post Procedure Diagnosis: Colonoscopy Findings: One medium sized polyps removed Moderate diverticulosis seen in the sigmoid colon Moderate hemorrhoids on retroflexed exam. Plan: Await pathology results Patient has an appointment on 06/25/21 in the GI Clinic with? Cori Chen NP. Repeat Colonoscopy interval based on path results - in 3 years if polyps are adenomatous and 10 years if polyps are hyperplastic. BIOPSY Received: 06/12/21 Diagnosis Colon, sigmoid, polypectomy: Fragments of tubular adenoma; no high-grade dysplasia or carcinoma seen TODAY'S VISIT APPARENTLY SHE HAS requesting an urgent visit for evaluation of abdominal pain. She is also overdue for her rescreening colonoscopy. [facility] Medical History (Updated 05/03/25 @ 15:39 by SUSAN Thornton) Physical exam Moderate asthma Encounter for gynecological examination with Papanicolaou smear of cervix Colon cancer screening Allergies Ascending aorta dilatation Edentulous History of cervical cancer COPD (chronic obstructive pulmonary disease) Non-rheumatic aortic stenosis Bicuspid aortic valve Pre-op evaluation Surgical History (Updated 05/03/25 @ 15:01 by Madelaine Weston [facility]) H/O colonoscopy History of loop electrical excision procedure (LEEP) (~06/15/20) History of tooth extraction History of pneumothorax History of bunionectomy Family History Father Pancreatic cancer Mother Leaky heart valve Maternal Aunt Breast cancer Social History Housing: Apartment Alcohol intake: never Patient Tobacco Use Status: Current someday Tobacco user Tobacco use type: Cigarette Cigarettes Per Day: 3 e-Cigarette/Vaping Use: Never Used Second Hand Smoke Exposure: No service: No Current occupational status: disabled Cognitive needs: No Hearing needs: No Vision needs: No Female Reproductive History Menstrual Age of Menarche: 11 Review of Systems Const Denies fatigue, Reports fever(s), Denies night sweats, Reports poor appetite and Denies weight loss ENT Reports Normal hearing present, Denies dental pain, Denies dysphagia, Denies hearing loss, Denies mouth pain, Denies odynophagia, Denies throat swelling, Denies tongue swelling and Reports other (Dentition adequate) Card Reports no additional complaints Resp Reports no additional complaints GI Details: Reports abdominal pain, Denies melena, Denies bloating, Denies hematochezia, Reports constipation, Denies GI cramping, Denies dysphagia, Denies excessive flatus, Denies early satiety, Denies heartburn, Denies diarrhea, Denies nausea, Denies odynophagia, Reports vomiting and Denies hematemesis Skin/Breast Denies pruritus, Denies lesions, Denies rash and Denies jaundice Neuro Reports Normal hearing present and Denies Abnormal speech present Psych Reports anxiety Endo Denies fatigue Aller/Immun Denies throat swelling and Denies tongue swelling Physical Exam Const General: cooperative, well developed, acute distress moderate, anxious and well groomed Nutritional Appearance: well nourished and thin Orientation/consciousness: oriented to person, oriented to place and oriented to time Limitations: No language barrier HEENT Head: Yes normocephalic and Yes atraumatic Eyes General: appearance normal, both eyes and all related structures Pupils: Equal, round and reactive pupils present Neck Neck: Yes normal visual inspection and Yes no lymphadenopathy Thyroid: Thyroid normal Resp Effort & Inspection: normal respiratory effort and able to speak in complete sentences Auscultation: clear to auscultation bilaterally and diminished lung sounds bilateral in the lower lung gaspar Cardio Rate: regular rate Rhythm: abnormal rhythm regularly irregular Heart sounds: Murmur heart sound present (Aortic systolic no radiation to the carotid question mild mitral systolic m) Peripheral pulses: radial pulses present and posterior tibial pulses present GI Inspection: No distended, No Abdominal panniculus present, No scar and No striae Palpation (GI): Soft to palpation, Tenderness to palpation present (GI) in the LLQ, in the LUQ and in the RUQ, no guarding, not rigid and No hepatosplenomegaly present Percussion: Yes normal to percussion Auscultation: Hyperactive bowel sounds present Rectal Exam - Female: deferred Skin General skin exam: no rashes or lesions noted, turgor normal, skin not dry, no jaundice, No spider nevi and no striae Rashes: no rashes Nails: normal Neuro General: oriented to person, oriented to place and oriented to time Cranial nerves: Yes Equal, round and reactive pupils present and Yes Normal hearing present Speech: No Abnormal speech present Extrem General: Yes normal to inspection, No clubbing, No cyanosis and No edema Psych Appearance: grossly normal and disheveled Mental Status: mental status grossly normal Speech and movement: Pressured speech present Affect: Anxious affect present and Other affect and mood findings present (Patient lying on floor when I 1st entered the room) Attitude: cooperative Thought process: not confabulating and Racing thoughts present Thought content: Normal thought content present Insight: Limited insight present (Psych) Judgement: Limited judgement present (Psych) Assessment & Plan Assessment & Plan (1) Tubular adenoma of colon: Code(s): D12.6 - Benign neoplasm of colon, unspecified Category: Medical (2) Pre-op evaluation: Code(s): Z01.818 - Encounter for other preprocedural examination Category: Medical (3) Generalized abdominal pain: Code(s): R10.84 - Generalized abdominal pain Category: Medical (4) Vomiting: Code(s): R11.10 - Vomiting, unspecified Category: Medical Plan - The patient is a 54-year-old female presenting with acute abdominal pain. - Pain onset approximately one month ago, progressively worsening in intensity. - The pain is centralized in the upper abdomen, originating to the right just above the umbilicus but at times is also intense in the left upper quadrant. - Describes the pain as a severe burning and pressure sensation at a 10/10 intensity. - Experiencing a liquid diet due to intolerance to solids, leading to significant weight loss. - Associated symptoms include episodic automatic vomiting without nausea, and subjective fever, although she has not measured her temperature. - Denies recent changes in medications, unusual foods, and family history of similar conditions. This has never presented/happened to her in the past. She did not have any diarrhea and generally has more constipation but of course isn't moving her bowels since she has had no p.o. intake. - Past history of ulcers since age 14, avoiding stress due to risk of hemorrhage. She does not remember if she ever had an upper endoscopy. - Pain does not subside significantly with lifestyle or dietary changes attempted so far. - Recently moved from [place] to [place], a potentially stressful environment due to urban challenges such as traffic and related anxieties. - On a fixed income, requiring careful management of medications and dietary expenses. She asks me to prescribe Tylenol for her pain since this would be less expensive than buying it [id number]. Although the patient is overdue for colonoscopy screening and likely would benefit from an EGD I think we need to do more of an urgent abdominal pain workup before we consider ordering these exams. With this I will get some basic labs including a CBC and a Chem panel, pancreatic enzymes, and an H pylori breath test. I will try to get an urgent CAT scan but in the meantime we will also ask her to go for an abdominal x-ray so that I can get a quick look at her belly. I am not going to endorse any medications or treatments at this time until I have more information. The differential diagnosis is extremely wide and could include anything for peptic ulcer disease, to gallbladder pathology, appendicitis, diverticulitis etc.. The patient has been doing research on the web and was under the impression it could be inflammatory bowel disease but in the absence of diarrhea I find this extremely unlikely. Return office visit in 2 weeks Orders: Orders CT abdomen pelvis w IV con Today R10.84 - Generalized abdominal pain H Pylori Breath Test Today R10.84 - Generalized abdominal pain, R11.10 - Vomiting, unspecified C Reactive Protein Today R10.84 - Generalized abdominal pain Comprehensive Met. Panel Today Z01.818 - Encounter for other preprocedural examination Complete Blood Count Auto Diff Today Z01.818 - Encounter for other preprocedural examination Amylase Today R10.84 - Generalized abdominal pain Lipase Today R10.84 - Generalized abdominal pain Referrals GI Procedure Notification D12.6 - Benign neoplasm of colon, unspecified, Z01.818 - Encounter for other preprocedural examination Medications: New sodium,potassium,mag sulfates 17.5-3.13-1.6 gram (Suprep Bowel Prep Kit) 480 mL orally; FOR COLONOSCOPY PREP 354 mL 0RF acetaminophen (Acetaminophen Extra Strength) 1,000 mg (2 x 500 mg) PO TID 90 tabs 2RF fever Coding Level of Care Code New Pt Level 3 (98260) Diagnoses Tubular adenoma of colon D12.6 Pre-op evaluation Z01.818 Generalized abdominal pain R10.84 Vomiting R11.10
[2025-05-03 14:56] VITALS: BP 122/82; PULSE 65; BMI 20.1
== END 2025-05-03 16:24 | disposition home or self-care (01) ==
LOC: HO.HGI 14:29
PROVIDERS: PCP Internal Medicine; Visit Provider Nurse Practitioner
DX: Z01.818 Encounter for other preprocedural examination (principal); Z12.11 Encounter for screening for malignant neoplasm of colon; Z86.0101 Personal history of adenomatous and serrated colon polyps; R10.84 Generalized abdominal pain; R11.10 Vomiting, unspecified
CPT/HCPCS: 99203

== ENCOUNTER 2025-05-03 14:29 | Outpatient (REF) | payer OTHER, SELFPAY ==
--- NOTE | ~2025-05-03 | XR_ITS ---
EXAMINATION: XR ABDOMEN COMPLETE CLINICAL INDICATION: R10.84 - Generalized abdominal pain COMPARISON: None available. TECHNIQUE: 2 views of the abdomen. FINDINGS: There is moderate stool in the right colon. The bowel gas pattern is unremarkable. There is no bony abnormality. XR/XR abdomen min 2V IMPRESSION: Moderate right colon stool. Electronically signed by: Tl Granados MD 05/03/2025 05:48 PM EDT
[2025-05-03 16:47] LABS: MANUAL DIFF FLAG NO
[2025-05-03 17:05] LABS: Hematocrit 43.8 % (37.0-47.0); Hemoglobin 14.6 g/dl (12.0-16.0); Imm Gran Abs Auto 0.06 X10*3/uL (0.00-0.03); Imm Gran Pct Auto 0.5 % (0.0-0.4); Lymphocytes Absolute Auto 2.9 X10*3/uL (1.2-4.9); Mean Corpuscular HGB Conc 33.3 g/dl (31.0-35.0); Mean Corpuscular Hemoglobin 28.9 pg (27.0-33.0); Mean Corpuscular Volume 86.7 fL (80.0-98.0); NRBC Abs Auto 0.000 X10*3/uL (0.0-0.012); NRBC Pct Auto 0.0 /100WBC (0.0-0.2); Platelet Count 350 X10*3/uL (160-400); Red Blood Count 5.05 X10*6/uL (4.20-5.50); White Blood Count 11.3 X10*3/uL (4.8-10.8)
[2025-05-03 18:07] LABS: Alanine Aminotransferase 12 U/L (0-31); Albumin Level 4.5 g/dL (3.5-5.0); Alkaline Phosphatase 79 U/L (39-117); Anion Gap 14 (12-20); Aspartate Amino Transferase 20 U/L (5-31); Blood Urea Nitrogen 22 mg/dL (9-16); Calcium 9.8 mg/dL (8.4-10.2); Carbon Dioxide 29 mmol/L (22-29); Chloride 102 mmol/L (96-108); Estimated Glomerular Filt Rate > 60; Lipase 50 U/L (8-78); Potassium 4.4 mmol/L (3.3-5.1); Sodium 141 mmol/L (135-145); Total Protein 7.5 g/dL (6.5-8.0)
[2025-05-03 18:08] LABS: Amylase 73 U/L (28-100)
== END 2025-05-03 14:30 | disposition home or self-care (01) ==
LOC: HO.XRAY 14:29
PROVIDERS: PCP Internal Medicine; Visit Provider Nurse Practitioner
DX: D12.6 Benign neoplasm of colon, unspecified (principal); R11.10 Vomiting, unspecified; Z01.818 Encounter for other preprocedural examination
CPT/HCPCS: 36415; 74019; 80053; 82150; 83013; 83690; 85025; 86140; 99202

== ENCOUNTER → 2025-05-03 16:50 | Outpatient (BNV) | payer OTHER, SELFPAY | PROVIDERS: PCP Internal Medicine; Visit Provider Radiology Diagnostic Radiology | DX: R10.84 Generalized abdominal pain (principal) | CPT/HCPCS: 74019 ==

== ENCOUNTER 2025-05-25 14:26 | Outpatient (REF) | payer OTHER, SELFPAY ==
--- NOTE | ~2025-05-25 | CT_ITS ---
EXAMINATION: CT ABDOMEN PELVIS WITH IV CONTRAST HISTORY: R10.84 - Generalized abdominal pain COMPARISON: There are no prior studies for available comparison. TECHNIQUE: CT scan of the abdomen and pelvis was performed following administration of 85 mL Omnipaque 350 using standard departmental protocol. Coronal and sagittal reformatted images were generated and reviewed. The patient received oral contrast material. This CT exam was performed with one or more of the following dose reduction techniques: automated exposure control, adjustment of the mA and/or kV according to patient size, use of iterative reconstruction technique. DLP: 384 mGy-cm FINDINGS: LOWER CHEST: The visualized lung bases are clear. There is no pleural effusion. CARDIOVASCULATURE: The heart is normal in size. There is no pericardial effusion. LIVER: The liver is normal in size and contour. There are multiple cysts within the liver measuring up to 1.4 cm in size. The hepatic and portal veins are patent. GALLBLADDER / BILE DUCTS: The gallbladder is unremarkable. There is no intra or extrahepatic biliary ductal dilatation. SPLEEN: The spleen is normal in size. No focal splenic lesion is identified. PANCREAS: The pancreas is unremarkable in appearance. ADRENAL GLANDS: Within normal limits. KIDNEYS/RETROPERITONEUM: No renal calculi are identified. There is no hydronephrosis. No renal masses are identified. LYMPH NODES: No abdominal or pelvic lymphadenopathy. VASCULATURE: The abdominal aorta is normal in caliber. MESENTERY/PERITONEUM: No free fluid. No masses. There is no free intraperitoneal gas. STOMACH: The stomach is unremarkable. SMALL BOWEL: The small bowel is normal in caliber. COLON: There is a large amount of stool throughout the colon. APPENDIX: Normal. URINARY BLADDER/PELVIC ORGANS: The urinary bladder is collapsed, limiting evaluation. The uterus is unremarkable. BONES / SOFT TISSUES: No suspicious bony or soft tissue abnormalities. CT/CT abdomen pelvis w IV con IMPRESSION: Large amount of stool throughout the colon. Otherwise unremarkable contrast-enhanced CT of the abdomen and pelvis. Electronically signed by: Amauri Meredith MD 05/26/2025 07:15 AM EDT
[2025-05-25] MEDS: Barium Sulfate Oral (Berry) 450 ML ORAL.SUSP 900 ML PO (16:08)
[2025-05-25] MEDS: iohexoL 350 MG/ML 100 ML INFUS..BTL IV (17:04)
== END 2025-05-25 14:27 | disposition home or self-care (01) ==
LOC: HO.CT 14:26
PROVIDERS: PCP Internal Medicine; Visit Provider Nurse Practitioner
DX: R10.84 Generalized abdominal pain (principal)
CPT/HCPCS: 74177; Q9967

== ENCOUNTER → 2025-05-25 14:29 | Outpatient (BNV) | payer OTHER, SELFPAY | PROVIDERS: PCP Internal Medicine; Visit Provider Radiology Diagnostic Radiology | DX: R10.84 Generalized abdominal pain (principal) | CPT/HCPCS: 74177 ==